=== PATIENT | male | born 1960 | race Two or more races ===

== ENCOUNTER 2023-02-10 18:56 | Emergency (ER) | payer MEDICAID ==
[~2023-02-10] VITALS: Ht 170.2 cm; Wt 82.0 kg
[2023-02-10] MEDS ORDERED: HYDROCODONE/ACETAMINOPHEN 5/325MG TABLET PO ONE (19:15)
[2023-02-10] MEDS ORDERED: LIDOCAINE HCL/EPINEPHRINE 1%-EPI 1:100,000 20 ML VIAL INFIL ONE (19:15)
[2023-02-10] MEDS ORDERED: TETANUS, DIPHTHERIA, PERTUSSIS VAC/PF 0.5ML (>10YR OLD) IM ONE (19:15)
[2023-02-10] MEDS ORDERED: BACITRACIN ZINC OINT UDPKT TOP ONE (19:15)
[2023-02-10] MEDS ORDERED: CEPH500T MT (20:46)
[2023-02-10] MEDS ORDERED: IBUP-2029 MT (20:46)
[2023-02-10] MEDS ORDERED: T3 PO (20:46)
[2023-02-10 20:51] VITALS: BP 153/99
== END 2023-02-10 21:00 | disposition home or self-care (01) ==
LOC: ER 18:56
DX: S51.812A Laceration without foreign body of left forearm, initial encounter (principal); X58.XXXA Exposure to other specified factors, initial encounter; Y93.89 Activity, other specified; Y92.89 Other specified places as the place of occurrence of the external cause; Y99.8 Other external cause status
CPT/HCPCS: 12004; 73070; 90471; 90715; 99283; J3490; Z7610